=== PATIENT | female | born 1975 | race American Indian/Alaskan Native ===

== ENCOUNTER 2019-04-21 13:41 | Emergency (ER) | payer OTHER ==
[2019-04-21 14:18] VITALS: BP 150/88
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
[2019-04-21] MEDS ORDERED: IBUPROFEN PO ONE ×2 (14:46→14:49)
--- NOTE | 2019-04-21 14:57 | XRay Report ---
LEFT HAND, 3 VIEWS INDICATION: wrist HAND pain and swelling. COMPARISON: None. IMPRESSION: No acute osseous or soft tissue abnormality. No significant DJD. Signer Name: Kermit Chavez Jr, MD Signed: 04/21/2019 2:53 PM Workstation Name: [id number]
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
== END 2019-04-21 16:21 | disposition home or self-care (01) ==
LOC: ED 13:41
DX: S60.222A Contusion of left hand, initial encounter (principal); E11.9 Type 2 diabetes mellitus without complications; Z79.899 Other long term (current) drug therapy; Z88.0 Allergy status to penicillin; Z88.5 Allergy status to narcotic agent; W22.03XA Walked into furniture, initial encounter; Y93.89 Activity, other specified; Y92.89 Other specified places as the place of occurrence of the external cause; Y99.8 Other external cause status

== ENCOUNTER 2020-04-01 19:17 | Emergency (ER) | payer OTHER ==
[2020-04-01 19:55] VITALS: BP 135/67
[2020-04-01] MEDS ORDERED: ONDANSETRON 4 MG ODT TAB PO ONE (20:53)
[2020-04-01] MEDS ORDERED: oxyCODONE /ACETAMINOPHEN 5-325MG TAB PO ONE (20:54)
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
== END 2020-04-01 22:00 | disposition home or self-care (01) ==
LOC: ED 19:17
DX: S09.90XA Unspecified injury of head, initial encounter (principal); E11.9 Type 2 diabetes mellitus without complications; Z98.890 Other specified postprocedural states; Z79.899 Other long term (current) drug therapy; Z88.4 Allergy status to anesthetic agent; Z88.0 Allergy status to penicillin; X58.XXXA Exposure to other specified factors, initial encounter; Y93.89 Activity, other specified; Y92.89 Other specified places as the place of occurrence of the external cause; Y99.8 Other external cause status
CPT/HCPCS: 70450; Q0162

== ENCOUNTER 2021-07-31 15:23 | Emergency (ER) | payer OTHER ==
[2021-07-31 16:28] VITALS: BP 141/73
--- NOTE | 2021-07-31 17:27 | XRay Report ---
CHEST 2 VIEWS INDICATION / CLINICAL INFORMATION: Dyspnea. Shortness of breath for 2 weeks. COMPARISON: None available. FINDINGS: SUPPORT DEVICES: None. HEART / MEDIASTINUM: The heart size and pulmonary vasculature are normal. LUNGS / PLEURA: No significant pulmonary or pleural abnormality. No pneumothorax. ADDITIONAL FINDINGS: No significant additional findings. IMPRESSION: No acute findings. Signer Name: Rick Griffin MD Signed: 07/31/2021 5:22 PM Workstation Name: [id number]
--- NOTE | 2021-07-31 17:43 | Emergency Department Report ---
- General Chief Complaint: Dyspnea/Respdistress Stated Complaint: SALLY/CHEST PAIN Time Seen by Provider: 07/31/21 16:56 Source: patient Mode of arrival: Ambulatory Limitations: No Limitations - History of Present Illness Initial Comments: pt presents to ed with complaint of SOB MD Complaint: cough, sore throat, rhinorrhea, nasal congestion -: Gradual Severity: moderate Worsens With: nothing Associated Symptoms: chills, myalgias Treatments Prior to Arrival: none - Related Data Previous Rx's Medication Instructions Recorded Last Taken Type Cyclobenzaprine [Flexeril 10mg] 10 mg PO BID PRN #10 tablet 06/17/14 Unknown Rx Ibuprofen [Motrin 400 MG tab] 400 mg PO Q8H PRN #30 tablet 06/17/14 Unknown Rx Prednisone [Prednisone 5 mg (6-Day 5 mg PO .TAPER #1 tab.ds.pk 06/17/14 Unknown Rx Pack, 21 Tabs)] traMADoL [Ultram 50 MG tab] 50 mg PO Q6HR PRN #20 tablet 06/17/14 Unknown Rx Ibuprofen [Motrin 800 MG tab] 800 mg PO Q8HR PRN #21 tablet 04/21/19 Unknown Rx Naproxen [Naprosyn] 500 mg PO BID #20 tablet 04/01/20 Unknown Rx Ondansetron [Zofran Odt] 4 mg PO Q8HR PRN #20 tab.rapdis 04/01/20 Unknown Rx oxyCODONE /ACETAMINOPHEN [Percocet 1 tab PO Q6HR PRN #7 tablet 04/01/20 Unknown Rx 5/325] Azithromycin [Zithromax Z-ABBE] 250 mg PO DAILY #6 07/31/21 Unknown Rx Brompheniramine/Pseudoephed/Dm 118 ml PO Q6HR #118 07/31/21 Unknown Rx [Bromfed Dm Cough Syrup] methylPREDNISolone [Medrol 4MG 4 mg PO DAILY 5 Days #1 07/31/21 Unknown Rx DOSEPAK (21 tabs)] Allergies Allergy/AdvReac Type Severity Reaction Status Date / Time codeine Allergy Hives Verified 04/21/19 13:43 Penicillins Allergy Hives Verified 04/21/19 13:43 ED Review of Systems ROS: Stated complaint: SALLY/CHEST PAIN Other details as noted in HPI Constitutional: denies: chills, fever Eyes: denies: eye pain, eye discharge, vision change ENT: denies: ear pain, throat pain Respiratory: denies: cough, shortness of breath, wheezing Cardiovascular: denies: chest pain, palpitations Endocrine: no symptoms reported Gastrointestinal: denies: abdominal pain, nausea, diarrhea Genitourinary: denies: urgency, dysuria, discharge Musculoskeletal: denies: back pain, joint swelling, arthralgia Skin: denies: rash, lesions Neurological: denies: headache, weakness, paresthesias Psychiatric: denies: anxiety, depression Hematological/Lymphatic: denies: easy bleeding, easy bruising ED Past Medical Hx - Past Medical History Previous Medical History?: Yes Hx Diabetes: Yes Additional medical history: leaky heart valve. heart murmur - Surgical History Past Surgical History?: Yes Additional Surgical History: C SEXCTION GASTRIC SLEEVE - Social History Smoking Status: Never Smoker Substance Use Type: Alcohol - Medications Home Medications: Home Medications Medication Instructions Recorded Confirmed Last Taken Type Cyclobenzaprine [Flexeril 10mg] 10 mg PO BID PRN #10 tablet 06/17/14 Unknown Rx Ibuprofen [Motrin 400 MG tab] 400 mg PO Q8H PRN #30 tablet 06/17/14 Unknown Rx Prednisone [Prednisone 5 mg (6-Day 5 mg PO .TAPER #1 tab.ds.pk 06/17/14 Unknown Rx Pack, 21 Tabs)] traMADoL [Ultram 50 MG tab] 50 mg PO Q6HR PRN #20 tablet 06/17/14 Unknown Rx Ibuprofen [Motrin 800 MG tab] 800 mg PO Q8HR PRN #21 tablet 04/21/19 Unknown Rx Naproxen [Naprosyn] 500 mg PO BID #20 tablet 04/01/20 Unknown Rx Ondansetron [Zofran Odt] 4 mg PO Q8HR PRN #20 tab.rapdis 04/01/20 Unknown Rx oxyCODONE /ACETAMINOPHEN [Percocet 1 tab PO Q6HR PRN #7 tablet 04/01/20 Unknown Rx 5/325] Azithromycin [Zithromax Z-ABBE] 250 mg PO DAILY #6 07/31/21 Unknown Rx Brompheniramine/Pseudoephed/Dm 118 ml PO Q6HR #118 07/31/21 Unknown Rx [Bromfed Dm Cough Syrup] methylPREDNISolone [Medrol 4MG 4 mg PO DAILY 5 Days #1 07/31/21 Unknown Rx DOSEPAK (21 tabs)] ED Physical Exam - General Limitations: No Limitations General appearance: alert, in no apparent distress - Head Head exam: Present: atraumatic, normocephalic - Eye Eye exam: Present: normal appearance - ENT ENT exam: Present: mucous membranes moist - Neck Neck exam: Present: normal inspection - Respiratory Respiratory exam: Present: normal lung sounds bilaterally. Absent: respiratory distress - Cardiovascular Cardiovascular Exam: Present: regular rate, normal rhythm. Absent: systolic murmur, diastolic murmur, rubs, gallop - GI/Abdominal GI/Abdominal exam: Present: soft, normal bowel sounds - Extremities Exam Extremities exam: Present: normal inspection - Back Exam Back exam: Present: normal inspection - Neurological Exam Neurological exam: Present: alert, oriented X3 - Psychiatric Psychiatric exam: Present: normal affect, normal mood - Skin Skin exam: Present: warm, dry, intact, normal color. Absent: rash ED Course Vital Signs 07/31/21 16:23 Temperature 98.8 F Pulse Rate 84 Respiratory 16 Rate Blood Pressure 141/73 [Left] O2 Sat by Pulse 100 Oximetry - Reevaluation(s) Reevaluation #1: 07/31/21 17:42 x ray clear , vss , o2 sat 98 on RA nno distress Critical care attestation.: If time is entered above; I have spent that time in minutes in the direct care of this critically ill patient, excluding procedure time. ED Disposition Clinical Impression: URI (upper respiratory infection) Disposition: 01 HOME / SELF CARE / HOMELESS Is pt being admited?: No Does the pt Need Aspirin: No Condition: Stable Instructions: Viral Respiratory Infection, [id number], Upper Respiratory Infection, Adult, [id number] Prescriptions: Brompheniramine/Pseudoephed/Dm [Bromfed Dm Cough Syrup] 118 ml PO Q6HR #118 methylPREDNISolone [Medrol 4MG DOSEPAK (21 tabs)] 4 mg PO DAILY 5 Days #1 Azithromycin [Zithromax Z-ABBE] 250 mg PO DAILY #6
[2021-07-31] MEDS ORDERED: ACETAMINOPHEN 500 MG TAB PO STA (19:09)
[2021-07-31] MEDS ORDERED: IBUPROFEN 800 MG TAB PO STA (19:09)
== END 2021-07-31 19:26 | disposition home or self-care (01) ==
LOC: ED 15:23
DX: J06.9 Acute upper respiratory infection, unspecified (principal); E11.9 Type 2 diabetes mellitus without complications; Z79.899 Other long term (current) drug therapy; Z98.890 Other specified postprocedural states; Z88.0 Allergy status to penicillin; Z91.09 Other allergy status, other than to drugs and biological substances
CPT/HCPCS: 71046; 99283

== ENCOUNTER 2021-08-14 06:10 | Emergency (ER) | payer OTHER ==
[2021-08-14] MEDS ORDERED: KETOROLAC 60 MG/2 ML INJ IM ONE (07:40)
--- NOTE | 2021-08-14 07:40 | Emergency Department Report ---
ED Lower Extremity HPI - General Chief Complaint: Extremity Injury, Lower Stated Complaint: LEFT KNEE PAIN Time Seen by Provider: 08/14/21 07:09 Source: patient Mode of arrival: Ambulatory Limitations: No Limitations - History of Present Illness Initial Comments: 46-year-old female presents to the ER today with complaints of left knee pain and injury. Patient states that around 12 AM this morning she was helping her daughter dismantle a dresser. She was standing on top of the drawers part of the dresser when she fell through causing her to fall. She states that she landed on her left side and "all her weight" went onto her left knee. She states that EMS came and assessed her. She thought that the pain would go away and therefore refused transport at the time but it has continued and so she came to the ER. She has not taken anything for pain prior to coming in. She reports difficulty moving the knee, and standing and ambulating due to pain. She reports swelling. She denies any open wounds or apparent bruising. She denies any prior issues with her knees in the past. She reports no additional symptoms at this time. MD Complaint: knee injury -: This morning (around 12 am ) - Related Data Previous Rx's Medication Instructions Recorded Last Taken Type HYDROcodone/APAP 5-325 [Cadiz 1 each PO Q6HR PRN #12 tablet 08/14/21 Unknown Rx 5/325] Ibuprofen [Motrin] 600 mg PO Q8H PRN #30 tablet 08/14/21 Unknown Rx Allergies Allergy/AdvReac Type Severity Reaction Status Date / Time codeine Allergy Hives Verified 04/21/19 13:43 Penicillins Allergy Hives Verified 04/21/19 13:43 ED Review of Systems ROS: Stated complaint: LEFT KNEE PAIN Other details as noted in HPI Comment: All other systems reviewed and negative Musculoskeletal: joint swelling, arthralgia ED Past Medical Hx - Past Medical History Hx Diabetes: Yes Additional medical history: leaky heart valve. heart murmur - Surgical History Additional Surgical History: C SEXCTION GASTRIC SLEEVE - Social History Smoking Status: Never Smoker Substance Use Type: Alcohol - Medications Home Medications: Home Medications Medication Instructions Recorded Confirmed Last Taken Type HYDROcodone/APAP 5-325 [Cadiz 1 each PO Q6HR PRN #12 tablet 08/14/21 Unknown Rx 5/325] Ibuprofen [Motrin] 600 mg PO Q8H PRN #30 tablet 08/14/21 Unknown Rx ED Physical Exam - General Limitations: No Limitations General appearance: alert, in distress (appears uncomfortable due to pain ) - Head Head exam: Present: atraumatic, normocephalic, normal inspection - Respiratory Respiratory exam: Absent: respiratory distress - Cardiovascular Cardiovascular Exam: Present: regular rate - Expanded Lower Extremity Exam Left Hip exam: Present: normal inspection. Absent: tenderness, swelling Upper Leg exam: Present: normal inspection. Absent: tenderness, swelling Knee exam: Present: normal inspection, tenderness (diffusely ), swelling (mild ), full knee extension. Absent: full ROM (flexion reduced due to pain ), abrasion, laceration, ecchymosis, deformity, crepidus, dislocation, erythema, effusion Neuro vascular tendon exam: Present: motor deficit. Absent: no vascular compromise, abnormal cap refill, sensory deficit, tendon deficit Gait: Positive: observed and limited by pain - Neurological Exam Neurological exam: Present: alert, oriented X3, CN II-XII intact - Psychiatric Psychiatric exam: Present: normal affect, anxious - Skin Skin exam: Present: intact ED Course Vital Signs 08/14/21 06:13 Temperature 98.5 F Pulse Rate 116 H Respiratory 17 Rate Blood Pressure 113/74 [Right] O2 Sat by Pulse 97 Oximetry ED Lower Extremity MDM - Radiology Data Radiology results: report reviewed Patient: RAVI BENNETT MR# : [id number] : 1975 Acct:[id number] Age/Sex: 46 / F ADM Date: 08/14/21 Loc: ED Attending Dr: Ordering Physician: RICHMOND BROWN Date of Service: 08/14/21 Procedure(s): XR knee 3V LT Accession Number(s): [id number] cc: RICHMOND BROWN Fluoro Time In Minutes: LEFT KNEE 3 VIEWS INDICATION: knee pain/injury; PT FELL ON LT KNEE. COMPARISON: None. IMPRESSION: A large joint effusion is identified on the lateral image. No acute osseous injury or bone lesion is identified. Minimal early osteoarthritic changes are identified. If internal derangement is suspected, nonemergent MRI should provide the most information. Signer Name: Kermit Chavez Jr, MD Signed: 08/14/2021 8:12 AM Workstation Name: [id number] Transcribed By: TTR Dictated By: KERMIT CHAVEZ JR, MD Electronically Authenticated By: KERMIT CHAVEZ JR, MD Signed Date/Time: 08/14/21811 DD/ 0 TD/TT: Critical care attestation.: If time is entered above; I have spent that time in minutes in the direct care of this critically ill patient, excluding procedure time. ED Disposition Clinical Impression: Traumatic effusion of knee joint, Knee sprain Disposition: HOME / SELF CARE / HOMELESS Is pt being admited?: No Does the pt Need Aspirin: No Condition: Stable Instructions: Knee Sprain, Adult, Knee Effusion, How to Use a Knee Brace, How to Use Cold Therapy, [id number] Additional Instructions: I recommend that you use the knee immobilizer and crutches as discussed. Elevate your leg as often as possible. You can apply ice to the knee to help with pain and swelling. Take the ibuprofen and the hydrocodone as prescribed for pain. Most importantly I recommend that you call the cash posting specialist listed on discharge instructions to set up an appointment for follow-up in the next 1 week. Return to the ER if your symptoms worsens or changes in any way. Prescriptions: Ibuprofen [Motrin] 600 mg PO Q8H PRN #30 tablet PRN Reason: Pain HYDROcodone/APAP 5-325 [Cadiz 5/325] 1 each PO Q6HR PRN #12 tablet PRN Reason: Pain Referrals: VIKRAM SEVILLA MD [Staff Physician] - 3-5 Days Forms: Work/School Release Form(ED) Time of Disposition: 08:43
--- NOTE | 2021-08-14 08:17 | XRay Report ---
LEFT KNEE 3 VIEWS INDICATION: knee pain/injury; PT FELL ON LT KNEE. COMPARISON: None. IMPRESSION: A large joint effusion is identified on the lateral image. No acute osseous injury or b one lesion is identified. Minimal early osteoarthritic changes are identified. If internal derangemen t is suspected, nonemergent MRI should provide the most information. Signer Name: Kermit Chavez Jr, MD Signed: 08/14/2021 8:12 AM Workstation Name: [id number]
[2021-08-14 09:15] VITALS: BP 130/81
== END 2021-08-14 09:14 | disposition home or self-care (01) ==
LOC: ED 06:10
DX: S83.92XA Sprain of unspecified site of left knee, initial encounter (principal); M25.462 Effusion, left knee; Z98.890 Other specified postprocedural states; W19.XXXA Unspecified fall, initial encounter; Y93.89 Activity, other specified; Y92.89 Other specified places as the place of occurrence of the external cause; Y99.8 Other external cause status; E11.9 Type 2 diabetes mellitus without complications
CPT/HCPCS: 73562; 96372; 99283; J1885

== ENCOUNTER 2021-08-27 23:19 | Emergency (ER) | payer OTHER ==
[2021-08-28 00:05] VITALS: BP 123/85
[2021-08-28] MEDS ORDERED: FLUORESCEIN 1 MG STRIP OP ONE (00:26)
[2021-08-28] MEDS ORDERED: TETRACAINE 0.5% OPHTH SOLN 4ML OU STA (00:26)
--- NOTE | 2021-08-28 00:28 | Emergency Department Report ---
ED General Adult HPI - General Chief complaint: Eye Problems Stated complaint: LT EYE PAIN Time Seen by Provider: 08/28/21 00:26 Source: patient, RN notes reviewed Mode of arrival: Ambulatory Limitations: No Limitations - History of Present Illness Initial comments: The patient is a 46-year-old female who states that she is not , who also reports that she wears glasses but not contact lenses, who further reports that she is able to tolerate Percocet/morphine, who presents to the ER today with an accidental scratch injury to the left thigh, after she accidentally brushed her left hand up against her left eye a few hours ago. She denies additional injuries and complaints. Her pain is markedly improved with application of tetracaine in the emergency room. She denies loss of visual acuity. She denies additional injuries and complaints -: Sudden Location: eyes (Left eye) Radiation: non-radiation Severity scale (0 -10): 10 Quality: aching Consistency: constant Improves with: medication Worsens with: none Associated Symptoms: denies other symptoms - Related Data Previous Rx's Medication Instructions Recorded Last Taken Type Acetaminophen [Non-Aspirin Extra 500 mg PO Q6HR PRN #30 tablet 08/28/21 Unknown Rx Strength] Gentamicin 0.3% Ophth Oint 1 applicatio OS Q4H 7 Days #1 tube 08/28/21 Unknown Rx Ibuprofen [Motrin] 600 mg PO Q8H PRN #30 tablet 08/28/21 Unknown Rx Mineral Oil/Petrolatum,White 1 applic OS PRN PRN #1 bottle 08/28/21 Unknown Rx [Refresh Lacri-Lube Ointment] Morphine Sulfate [Morphine Sulfate 7.5 mg PO Q6HR PRN #10 tablet 08/28/21 Unknown Rx IR] Allergies Allergy/AdvReac Type Severity Reaction Status Date / Time codeine Allergy Hives Verified 04/21/19 13:43 Penicillins Allergy Hives Verified 04/21/19 13:43 ED Review of Systems ROS: Stated complaint: LT EYE PAIN Other details as noted in HPI Comment: All other systems reviewed and negative Eyes: eye pain, eye discharge. denies: vision change ED Past Medical Hx - Past Medical History Previous Medical History?: Yes Hx Diabetes: Yes Additional medical history: leaky heart valve. heart murmur - Surgical History Past Surgical History?: Yes Additional Surgical History: C SEXCTION GASTRIC SLEEVE - Social History Smoking Status: Never Smoker Substance Use Type: Alcohol - Medications Home Medications: Home Medications Medication Instructions Recorded Confirmed Last Taken Type Acetaminophen [Non-Aspirin Extra 500 mg PO Q6HR PRN #30 tablet 08/28/21 Unknown Rx Strength] Gentamicin 0.3% Ophth Oint 1 applicatio OS Q4H 7 Days #1 tube 08/28/21 Unknown Rx Ibuprofen [Motrin] 600 mg PO Q8H PRN #30 tablet 08/28/21 Unknown Rx Mineral Oil/Petrolatum,White 1 applic OS PRN PRN #1 bottle 08/28/21 Unknown Rx [Refresh Lacri-Lube Ointment] Morphine Sulfate [Morphine Sulfate 7.5 mg PO Q6HR PRN #10 tablet 08/28/21 Unk nown Rx IR] ED Physical Exam - General Limitations: No Limitations General appearance: alert, anxious, in distress - Head Head exam: Present: atraumatic, normocephalic - Eye Eye exam: Present: PERRL, EOMI, conjunctival injection. Absent: normal appearance (Left lateral conjunctiva is injected. There is a negative Artemio sign. There is positive fluorescein uptake in the mid cornea.), nystagmus - ENT ENT exam: Present: normal exam, normal orophraynx, mucous membranes moist, normal external ear exam - Neck Neck exam: Present: normal inspection, full ROM. Absent: tenderness, meningismus - Respiratory Respiratory exam: Present: normal lung sounds bilaterally. Absent: respiratory distress, wheezes, rales, rhonchi, stridor, decreased breath sounds - Cardiovascular Cardiovascular Exam: Present: regular rate, normal rhythm, normal heart sounds. Absent: bradycardia, tachycardia, irregular rhythm, systolic murmur, diastolic murmur, rubs, gallop - GI/Abdominal GI/Abdominal exam: Present: soft. Absent: distended, tenderness, guarding, rebound, rigid, pulsatile mass - Extremities Exam Extremities exam: Present: normal inspection, full ROM, other (2+ pulses noted in the bilateral upper and lower extremities. There is no palpable cord. negative Homans sign. Muscular compartments are soft. The pelvis is stable.). Absent: pedal edema, calf tenderness - Back Exam Back exam: Present: normal inspection, full ROM. Absent: tenderness, CVA tenderness (R), CVA tenderness (L), paraspinal tenderness, vertebral tenderness - Neurological Exam Neurological exam: Present: alert, oriented X3, normal gait, other (No facial droop. Tongue midline. Extraocular movements intact bilaterally. Facial sen sation intact to light touch in V1, V2, V3 distribution bilaterally. 5 and a 5 strength in 4 extremities. Sensation intact to light touch in 4 extremities.). Absent: motor sensory deficit - Psychiatric Psychiatric exam: Present: normal affect, normal mood - Skin Skin exam: Present: warm, dry, intact, normal color. Absent: rash - Other Other exam information: Visual acuity OU: 10: 15 OS: 10: 25 OD: 10: 20 ED Course Vital Signs 08/28/21 00:02 Temperature 98.6 F Pulse Rate 87 Respiratory 16 Rate Blood Pressure 123/85 [Right] O2 Sat by Pulse 96 Oximetry ED Medical Decision Making - Lab Data Vital Signs 08/28/21 00:02 Temperature 98.6 F Pulse Rate 87 Respiratory 16 Rate Blood Pressure 123/85 [Right] O2 Sat by Pulse 96 Oximetry - Medical Decision Making Differential diagnosis, including but not limited to: Corneal abrasion Assessment and plan: 46-year-old female with probable left-sided corneal abrasion. Visual acuity is intact to OS 10/25, OD 10/20, OU, 10/15. She has a negative Artemio sign, positive fluorescein uptake, and denies additional injuries and complaints. Her pain is markedly improved with tetracaine. Educated as to the natural history of corneal abrasion. Artificial tears, topical antibiotics, as needed medication, avoidance of submersion, avoidance of contact lenses, follow-up with outpatient financial analysis advisor. Discussed this with the patient. She articulates understanding. All questions answered. Return precautions reviewed Critical care attestation.: If time is entered above; I have spent that time in minutes in the direct care of this critically ill patient, excluding procedure time. ED Disposition Clinical Impression: Corneal abrasion, left Qualifiers: Encounter type: initial encounter Qualified Code(s): S05.02XA - Injury of conjunctiva and corneal abrasion without foreign body, left eye, initial encounter Disposition: HOME / SELF CARE / HOMELESS Is pt being admited?: No Does the pt Need Aspirin: No Condition: Good Instructions: Corneal Abrasion Additional Instructions: Take the pain medication as needed and directed. If taking the morphine sulfate, do not drive, consume alcohol, or make important decisions. Apply artificial tears as directed, use antibiotics as directed. Wear glasses, and do not wear contact lenses. Avoid submersion and swimming. Patient may take a bath or shower. Follow-up with an eye doctor or financial analysis advisor within the next week. Please return to the emergency room right away with new pain, worsened pain, migration of pain, projectile vomiting, change in mental status, confusion, inability tolerate liquid feeds, new, worsened or different symptoms not present on the initial emergency room evaluation Referrals: [facility] [Provider Group] - 3-5 Days Forms: Work/School Release Form(ED)
[2021-08-28] MEDS ORDERED: ACETAMINOPHEN 325 MG TAB PO ONE (00:54)
== END 2021-08-28 01:28 | disposition home or self-care (01) ==
LOC: ED 23:19
DX: S05.02XA Injury of conjunctiva and corneal abrasion without foreign body, left eye, initial encounter (principal); X58.XXXA Exposure to other specified factors, initial encounter; Y93.89 Activity, other specified; Y92.89 Other specified places as the place of occurrence of the external cause; Y99.8 Other external cause status; E11.9 Type 2 diabetes mellitus without complications; Z88.0 Allergy status to penicillin; Z91.09 Other allergy status, other than to drugs and biological substances
CPT/HCPCS: 99282; 99283